=== PATIENT | female | born 1965 | race African-American/Black ===

== ENCOUNTER 2016-09-07 16:30 | Inpatient (IN) | payer MEDICAID, OTHER ==
[~2016-09-07] VITALS: Ht 157.5 cm; Wt 85.0 kg
[~2016-09-07 16:30] MED LIST: ALBU6.7H IH; DULO60CA44 PO; GABA-531 PO; OXYB5 PO; QUET200T PO; TRAZ150 PO
[2016-09-07 17:06] LABS: GLUCOSE COMMENT 1 Doctor Notified; GLUCOSE,POINT OF CARE 108 MG/DL (70-110)
[2016-09-07 17:08] LABS: BASOPHILS % (AUTO) 0.9 % (0.0-2.0); EOSINOPHILS % (AUTO) 2.7 % (1.0-6.0); HEMATOCRIT 36.7 % (36-46); HEMOGLOBIN 11.8 g/dL (12.0-16.0); LYMPHOCYTES # (AUTO) 2.5 K/uL (1.0-4.8); LYMPHOCYTES % (AUTO) 39.1 % (22.0-44.0); MEAN CORPUSCULAR HGB CONC 32.1 G/dL (31.0-37.0); MEAN CORPUSCULAR VOLUME 81 fL (80-100); MONOCYTES # (AUTO) 0.5 K/uL (0.1-1.0); MONOCYTES % (AUTO) 7.7 % (2.0-9.0); NEUTROPHILS # (AUTO) 3.1 K/uL (1.8-7.7); NEUTROPHILS % (AUTO) 49.6 % (40.0-70.0); PLATELET COUNT (AUTO) 334 K/uL (150-450); RED BLOOD CELL COUNT(AUTO) 4.52 MIL/uL (4.00-5.20); RED CELL DISTRIBUTION WIDTH 14.1 % (11.5-14.5); WHITE BLOOD COUNT (AUTO) 6.3 K/uL (4.5-11.0)
[2016-09-07 17:22] LABS: ANION GAP 7 mmol/L (8-16); CARBON DIOXIDE 28 mmol/L (22-29); CHLORIDE 105 mmol/L (98-107); CREATININE 0.64 mg/dL (0.60-1.30); GLOMERULAR FILTR. RATE CALC > 60 mL/min (>60); POTASSIUM 3.1 mmol/L (3.5-5.1); SODIUM SERUM 140 mmol/L (136-145); UREA NITROGEN, BLOOD 11 mg/dL (7-18)
[2016-09-07 17:28] LABS: ALANINE AMINOTRANSFERASE 39 U/L (12-78); ALBUMIN 3.4 g/dL (3.4-5.0); ASPARTATE AMINOTRANSFERASE 26 U/L (15-37); BILIRUBIN,TOTAL 0.4 mg/dL (0.1-1.0); TOTAL PROTEIN, SERUM 7.1 g/dL (6.4-8.2)
[2016-09-07] MEDS ORDERED: DULO60CA44 PO (17:28)
[2016-09-07] MEDS ORDERED: HYDR25TA PO (17:28)
[2016-09-07] MEDS ORDERED: ALBU8.5H IH (17:28)
[2016-09-07] MEDS ORDERED: MIRT30 PO (17:28)
[2016-09-07] MEDS ORDERED: LOSA50TA37 PO (17:28)
[2016-09-07] MEDS ORDERED: AMLO-512 PO (17:28)
[2016-09-07] MEDS ORDERED: METF500T4 PO (17:28)
[2016-09-07] MEDS ORDERED: GABA-531 PO (17:28)
[2016-09-07] MEDS ORDERED: OMEP20 PO (17:28)
[2016-09-07] MEDS ORDERED: QUET25TA PO (17:28)
[2016-09-07] MEDS ORDERED: SIMV-261 PO (17:28)
[2016-09-07] MEDS ORDERED: BECL8.7A5 BC (17:28)
[2016-09-07] MEDS ORDERED: ACETAMINOPHEN 500 MG TABLET PO ONE (18:15)
[2016-09-07] MEDS ORDERED: POTASSIUM CHLORIDE 10% 40 MEQ/30 ML LIQUID UDCUP PO ONE (18:15)
[2016-09-07] MEDS ORDERED: IBUPROFEN 600 MG TABLET PO ONE (18:15)
[2016-09-07 20:54] VITALS: BP 150/98
[2016-09-07] MEDS ORDERED: HALOPERIDOL 5 MG TABLET PO PRN (21:30)
[2016-09-07] MEDS ORDERED: INFLUENZA VIRUS VACCINE QVS 2016-17 (3YR+)/PF 60 MCG/0.5 ML SYRINGE IM ONE (22:00)
[2016-09-08] MEDS ORDERED: CloNIDine HCL 0.1 MG TABLET PO PRN (07:30)
[2016-09-08] MEDS ORDERED: ACETAMINOPHEN 325 MG TABLET PO PRN (07:30)
[2016-09-08] MEDS ORDERED: BACITRACIN 28.4 GM OINTMENT TP PRN (07:30)
[2016-09-08] MEDS ORDERED: MAG HYDROX/AL HYDROX/SIMETH ES 30 ML SUSPENSION UDCUP PO PRN (07:30)
[2016-09-08] MEDS ORDERED: MAGNESIUM HYDROXIDE SUSPENSION 30 ML UDCUP PO PRN (07:30)
[2016-09-08] MEDS ORDERED: LOPERAMIDE HCL 2 MG CAPSULE PO PRN (07:30)
[2016-09-08] MEDS ORDERED: ALBUTEROL SULFATE HFA 90 MCG/PUFF 8 GM INHALER IH PRN (07:30)
[2016-09-08] MEDS ORDERED: PETROLATUM,WHITE 71 GM JELLY TP PRN (07:30)
[2016-09-08] MEDS ORDERED: ONDANSETRON HCL 4 MG TABLET PO PRN (07:30)
[2016-09-08] MEDS ORDERED: GuaiFENesin/D-METHORPHAN/PHENYLEPH 5 ML LIQUID ORAL.SYG PO PRN (07:30)
[2016-09-08] MEDS ORDERED: DEXTROSE 50%-WATER 25 GM/50 ML SYRINGE IVP PRN (07:30)
[2016-09-08] MEDS ORDERED: BENZOCAINE/MENTHOL LOZENGE [8 LOZENGES/PACKET] MM PRN (08:00)
[2016-09-08] MEDS: HYDROCHLOROTHIAZIDE 25 MG TABLET PO SCH (09:00)
[2016-09-08] MEDS: AmLODIPine BESYLATE 10 MG TABLET PO SCH (09:00)
[2016-09-08] MEDS: LOSARTAN POTASSIUM 50 MG TABLET PO SCH (09:16)
[2016-09-08] MEDS: BECLOMETHASONE DIPR 80 MCG/PUFF 8.7 GM INHALER IH SCH ×2 (09:16→21:20)
[2016-09-08] MEDS: MetFORMIN HCL 500 MG TABLET PO SCH ×2 (09:16→17:59)
[2016-09-08] MEDS: OMEPRAZOLE 20 MG CAPSULE PO SCH (09:17)
[2016-09-08 11:56] LABS: GLUCOSE,POINT OF CARE 170 MG/DL (70-110)
[2016-09-08] MEDS: INSULIN ASPART 100 UNITS/ML SQ PRN (12:09)
[2016-09-08 12:30] VITALS: BP 102/69
[2016-09-08 17:31] LABS: GLUCOSE,POINT OF CARE 100 MG/DL (70-110)
[2016-09-08 18:43] VITALS: BP 122/69
[2016-09-08] MEDS: MIRTAZAPINE 30 MG TABLET PO SCH (21:21)
[2016-09-08] MEDS: SIMVASTATIN 20 MG TABLET PO SCH (21:21)
[2016-09-08] MEDS: QUEtiapine FUMARATE 100 MG TABLET PO SCH (21:21)
[2016-09-08 23:33] LABS: GLUCOSE,POINT OF CARE 100 MG/DL (70-110)
[2016-09-09 06:29] LABS: CHOL/HDL RATIO 4.9 (3.9-5.7); POTASSIUM 3.9 mmol/L (3.5-5.1); THYROID STIMULATING HORMONE 0.74 uIU/mL (0.36-3.74)
[2016-09-09 07:33] LABS: HEMOGLOBIN A1C 7.1 % (4.5-6.2)
[2016-09-09 07:36] LABS: GLUCOSE,POINT OF CARE 91 MG/DL (70-110)
[2016-09-09] MEDS: MetFORMIN HCL 500 MG TABLET PO SCH ×2 (08:00→17:20)
[2016-09-09 11:30] VITALS: BP 126/68
[2016-09-09] MEDS: LOSARTAN POTASSIUM 50 MG TABLET PO SCH (11:38)
[2016-09-09] MEDS: HYDROCHLOROTHIAZIDE 25 MG TABLET PO SCH (11:38)
[2016-09-09] MEDS: BECLOMETHASONE DIPR 80 MCG/PUFF 8.7 GM INHALER IH SCH (11:38)
[2016-09-09] MEDS: AmLODIPine BESYLATE 10 MG TABLET PO SCH (11:38)
[2016-09-09] MEDS: OMEPRAZOLE 20 MG CAPSULE PO SCH (11:38)
[2016-09-09] MEDS: DULoxetine HCL 60 MG CAPSULE PO SCH (11:39)
[2016-09-09 17:21] LABS: GLUCOSE,POINT OF CARE 120 MG/DL (70-110)
[2016-09-09] MEDS: QUEtiapine FUMARATE 100 MG TABLET PO SCH (21:06)
[2016-09-09] MEDS: MIRTAZAPINE 30 MG TABLET PO SCH (21:06)
[2016-09-09] MEDS: SIMVASTATIN 20 MG TABLET PO SCH (21:06)
[2016-09-09 21:11] LABS: GLUCOSE,POINT OF CARE 123 MG/DL (70-110)
[2016-09-10 05:21] LABS: GLUCOSE,POINT OF CARE 91 MG/DL (70-110)
[2016-09-10] MEDS: MetFORMIN HCL 500 MG TABLET PO SCH ×2 (06:39→17:32)
[2016-09-10 08:30] VITALS: BP 127/59
[2016-09-10] MEDS: OMEPRAZOLE 20 MG CAPSULE PO SCH (10:07)
[2016-09-10] MEDS: AmLODIPine BESYLATE 10 MG TABLET PO SCH (10:08)
[2016-09-10] MEDS: HYDROCHLOROTHIAZIDE 25 MG TABLET PO SCH (10:08)
[2016-09-10] MEDS: DULoxetine HCL 60 MG CAPSULE PO SCH (10:08)
[2016-09-10] MEDS: LOSARTAN POTASSIUM 50 MG TABLET PO SCH (10:09)
[2016-09-10] MEDS: BECLOMETHASONE DIPR 80 MCG/PUFF 8.7 GM INHALER IH SCH ×2 (10:10→17:32)
[2016-09-10 11:47] LABS: GLUCOSE,POINT OF CARE 99 MG/DL (70-110)
[2016-09-10] MEDS: INSULIN ASPART 100 UNITS/ML SQ PRN (12:13)
[2016-09-10 16:00] VITALS: BP 122/56
[2016-09-10 16:57] LABS: GLUCOSE,POINT OF CARE 107 MG/DL (70-110)
[2016-09-10] MEDS: MIRTAZAPINE 30 MG TABLET PO SCH (21:06)
[2016-09-10] MEDS: QUEtiapine FUMARATE 100 MG TABLET PO SCH (21:06)
[2016-09-10] MEDS: SIMVASTATIN 20 MG TABLET PO SCH (21:06)
[2016-09-10 21:16] LABS: GLUCOSE,POINT OF CARE 117 MG/DL (70-110)
[2016-09-11 05:46] LABS: GLUCOSE,POINT OF CARE 95 MG/DL (70-110)
[2016-09-11] MEDS: MetFORMIN HCL 500 MG TABLET PO SCH ×2 (06:39→16:26)
[2016-09-11 08:00] VITALS: BP 118/77
[2016-09-11] MEDS: DULoxetine HCL 60 MG CAPSULE PO SCH (10:27)
[2016-09-11] MEDS: OMEPRAZOLE 20 MG CAPSULE PO SCH (10:27)
[2016-09-11] MEDS: AmLODIPine BESYLATE 10 MG TABLET PO SCH (10:27)
[2016-09-11] MEDS: BECLOMETHASONE DIPR 80 MCG/PUFF 8.7 GM INHALER IH SCH ×2 (10:27→16:26)
[2016-09-11] MEDS: HYDROCHLOROTHIAZIDE 25 MG TABLET PO SCH (10:27)
[2016-09-11] MEDS: LOSARTAN POTASSIUM 50 MG TABLET PO SCH (10:28)
[2016-09-11] MEDS: INSULIN ASPART 100 UNITS/ML SQ PRN (12:02)
[2016-09-11 12:06] LABS: GLUCOSE,POINT OF CARE 130 MG/DL (70-110)
[2016-09-11] MEDS: TraMADol HCL 50 MG TABLET PO PRN (12:43)
[2016-09-11 13:09] LABS: APPEARANCE,URINE CLOUDY (CLEAR); GLUCOSE, URINE (UA) NEGATIVE (NEGATIVE); KETONES,URINE NEGATIVE (NEGATIVE); LEUKOCYTE ESTERASE ,URINE NEGATIVE (NEGATIVE); OCCULT BLOOD,URINE NEGATIVE (NEGATIVE); PROTEIN,URINE NEGATIVE (NEGATIVE)
[2016-09-11 13:17] LABS: RBC,URINE None Seen /HPF (0-2); SQUAMOUS EPITHELIAL CELL,UR Few /LPF (None Seen); WBC,URINE 0-2 /HPF (0-5)
[2016-09-11 13:47] VITALS: BP 102/58
[2016-09-11] MEDS: CIPROFLOXACIN HCL 250 MG TABLET PO SCH (16:26)
[2016-09-11 16:31] LABS: GLUCOSE,POINT OF CARE 116 MG/DL (70-110)
[2016-09-11 18:18] VITALS: BP 111/64
[2016-09-11] MEDS: QUEtiapine FUMARATE 100 MG TABLET PO SCH (21:01)
[2016-09-11] MEDS: MIRTAZAPINE 30 MG TABLET PO SCH (21:01)
[2016-09-11] MEDS: SIMVASTATIN 20 MG TABLET PO SCH (21:01)
[2016-09-11 21:11] LABS: GLUCOSE,POINT OF CARE 114 MG/DL (70-110)
[2016-09-12 05:41] VITALS: BP 100/61
[2016-09-12 06:11] LABS: GLUCOSE,POINT OF CARE 98 MG/DL (70-110)
[2016-09-12] MEDS: MetFORMIN HCL 500 MG TABLET PO SCH ×2 (07:02→16:18)
[2016-09-12] MEDS: INSULIN ASPART 100 UNITS/ML SQ PRN (07:14)
[2016-09-12 08:00] VITALS: BP 129/74
[2016-09-12] MEDS: AmLODIPine BESYLATE 10 MG TABLET PO SCH (09:22)
[2016-09-12] MEDS: DULoxetine HCL 60 MG CAPSULE PO SCH (09:22)
[2016-09-12] MEDS: OMEPRAZOLE 20 MG CAPSULE PO SCH (09:22)
[2016-09-12] MEDS: CIPROFLOXACIN HCL 250 MG TABLET PO SCH ×2 (09:22→16:18)
[2016-09-12] MEDS: HYDROCHLOROTHIAZIDE 25 MG TABLET PO SCH (09:22)
[2016-09-12] MEDS: LOSARTAN POTASSIUM 50 MG TABLET PO SCH (09:23)
[2016-09-12] MEDS: BECLOMETHASONE DIPR 80 MCG/PUFF 8.7 GM INHALER IH SCH ×2 (09:23→16:18)
[2016-09-12] MEDS: TraMADol HCL 50 MG TABLET PO PRN (11:02)
[2016-09-12 11:16] LABS: GLUCOSE,POINT OF CARE 80 MG/DL (70-110)
[2016-09-12 16:26] LABS: GLUCOSE COMMENT 1 Received Meds; GLUCOSE,POINT OF CARE 101 MG/DL (70-110)
[2016-09-12 17:10] VITALS: BP 117/59
[2016-09-12] MEDS: IBUPROFEN 600 MG TABLET PO PRN (18:40)
[2016-09-12 18:42] VITALS: BP 122/77
[2016-09-12] MEDS: QUEtiapine FUMARATE 100 MG TABLET PO SCH (20:03)
[2016-09-12] MEDS: SIMVASTATIN 20 MG TABLET PO SCH (20:03)
[2016-09-12] MEDS: MIRTAZAPINE 30 MG TABLET PO SCH (20:03)
[2016-09-12 20:11] LABS: GLUCOSE,POINT OF CARE 103 MG/DL (70-110)
[2016-09-13 05:56] LABS: GLUCOSE,POINT OF CARE 124 MG/DL (70-110)
[2016-09-13] MEDS: MetFORMIN HCL 500 MG TABLET PO SCH ×2 (06:59→16:36)
[2016-09-13] MEDS: BECLOMETHASONE DIPR 80 MCG/PUFF 8.7 GM INHALER IH SCH ×2 (10:04→16:24)
[2016-09-13] MEDS: CIPROFLOXACIN HCL 250 MG TABLET PO SCH ×2 (10:04→16:24)
[2016-09-13] MEDS: LOSARTAN POTASSIUM 50 MG TABLET PO SCH (10:05)
[2016-09-13] MEDS: OMEPRAZOLE 20 MG CAPSULE PO SCH (10:05)
[2016-09-13] MEDS: DULoxetine HCL 60 MG CAPSULE PO SCH (10:05)
[2016-09-13] MEDS: HYDROCHLOROTHIAZIDE 25 MG TABLET PO SCH (10:05)
[2016-09-13] MEDS: AmLODIPine BESYLATE 10 MG TABLET PO SCH (10:05)
[2016-09-13] MEDS: TraMADol HCL 50 MG TABLET PO PRN (11:34)
[2016-09-13 11:36] LABS: GLUCOSE,POINT OF CARE 90 MG/DL (70-110)
[2016-09-13 16:50] VITALS: BP 110/76
[2016-09-13] MEDS: QUEtiapine FUMARATE 100 MG TABLET PO SCH (20:31)
[2016-09-13] MEDS: MIRTAZAPINE 30 MG TABLET PO SCH (20:31)
[2016-09-13] MEDS: SIMVASTATIN 20 MG TABLET PO SCH (20:31)
[2016-09-13] MEDS: INSULIN ASPART 100 UNITS/ML SQ PRN (20:36)
[2016-09-13 20:56] LABS: GLUCOSE,POINT OF CARE 97 MG/DL (70-110)
[2016-09-14] MEDS: MetFORMIN HCL 500 MG TABLET PO SCH ×2 (07:04→17:22)
[2016-09-14 08:00] VITALS: BP 133/79
[2016-09-14] MEDS: OMEPRAZOLE 20 MG CAPSULE PO SCH (08:20)
[2016-09-14] MEDS: DULoxetine HCL 60 MG CAPSULE PO SCH (08:21)
[2016-09-14] MEDS: TraMADol HCL 50 MG TABLET PO PRN ×2 (08:21→17:24)
[2016-09-14] MEDS: CIPROFLOXACIN HCL 250 MG TABLET PO SCH ×2 (08:22→17:22)
[2016-09-14] MEDS: LOSARTAN POTASSIUM 50 MG TABLET PO SCH (08:22)
[2016-09-14] MEDS: BECLOMETHASONE DIPR 80 MCG/PUFF 8.7 GM INHALER IH SCH ×2 (08:22→17:22)
[2016-09-14] MEDS: HYDROCHLOROTHIAZIDE 25 MG TABLET PO SCH (08:22)
[2016-09-14] MEDS: AmLODIPine BESYLATE 10 MG TABLET PO SCH (08:22)
[2016-09-14 09:21] VITALS: BP 115/62
[2016-09-14 12:07] LABS: GLUCOSE,POINT OF CARE 107 MG/DL (70-110)
[2016-09-14] MEDS: INSULIN ASPART 100 UNITS/ML SQ PRN (12:57)
[2016-09-14] MEDS: IBUPROFEN 600 MG TABLET PO PRN (13:30)
[2016-09-14 14:00] VITALS: BP 139/62
[2016-09-14 16:43] VITALS: BP 112/74
[2016-09-14 18:24] VITALS: BP 123/70
[2016-09-14] MEDS: ZOLPIDEM TARTRATE 10 MG TABLET PO PRN (20:14)
[2016-09-14] MEDS: MIRTAZAPINE 30 MG TABLET PO SCH (20:14)
[2016-09-14] MEDS: SIMVASTATIN 20 MG TABLET PO SCH (20:14)
[2016-09-14] MEDS: QUEtiapine FUMARATE 100 MG TABLET PO SCH (20:14)
[2016-09-15 05:36] LABS: GLUCOSE,POINT OF CARE 142 MG/DL (70-110)
[2016-09-15] MEDS: MetFORMIN HCL 500 MG TABLET PO SCH ×2 (06:54→17:26)
[2016-09-15] MEDS: INSULIN ASPART 100 UNITS/ML SQ PRN ×2 (06:58→11:36)
[2016-09-15] MEDS: OMEPRAZOLE 20 MG CAPSULE PO SCH (08:10)
[2016-09-15] MEDS: HYDROCHLOROTHIAZIDE 25 MG TABLET PO SCH (08:10)
[2016-09-15] MEDS: DULoxetine HCL 60 MG CAPSULE PO SCH (08:10)
[2016-09-15] MEDS: AmLODIPine BESYLATE 10 MG TABLET PO SCH (08:11)
[2016-09-15] MEDS: LORazepam 2 MG TABLET PO PRN ×2 (08:11→19:15)
[2016-09-15] MEDS: TraMADol HCL 50 MG TABLET PO PRN ×2 (08:15→17:27)
[2016-09-15 09:15] VITALS: BP 122/68
[2016-09-15 11:22] VITALS: BP 138/76
[2016-09-15 11:36] LABS: GLUCOSE,POINT OF CARE 129 MG/DL (70-110)
[2016-09-15] MEDS: BECLOMETHASONE DIPR 80 MCG/PUFF 8.7 GM INHALER IH SCH ×2 (12:22→17:26)
[2016-09-15] MEDS: LOSARTAN POTASSIUM 50 MG TABLET PO SCH (12:23)
[2016-09-15 17:02] VITALS: BP 129/78
[2016-09-15] MEDS: QUEtiapine FUMARATE 100 MG TABLET PO SCH (20:31)
[2016-09-15] MEDS: SIMVASTATIN 20 MG TABLET PO SCH (20:31)
[2016-09-15] MEDS: MIRTAZAPINE 30 MG TABLET PO SCH (20:31)
[2016-09-15] MEDS: IBUPROFEN 600 MG TABLET PO PRN (20:31)
[2016-09-15 20:33] VITALS: BP 130/73
[2016-09-16 06:06] LABS: GLUCOSE,POINT OF CARE 79 MG/DL (70-110)
[2016-09-16] MEDS: MetFORMIN HCL 500 MG TABLET PO SCH ×2 (07:07→17:14)
[2016-09-16] MEDS: INSULIN ASPART 100 UNITS/ML SQ PRN (07:11)
[2016-09-16] MEDS: AmLODIPine BESYLATE 10 MG TABLET PO SCH (08:52)
[2016-09-16] MEDS: LOSARTAN POTASSIUM 50 MG TABLET PO SCH (08:52)
[2016-09-16] MEDS: DULoxetine HCL 60 MG CAPSULE PO SCH (08:52)
[2016-09-16] MEDS: OMEPRAZOLE 20 MG CAPSULE PO SCH (08:52)
[2016-09-16] MEDS: HYDROCHLOROTHIAZIDE 25 MG TABLET PO SCH (08:53)
[2016-09-16 08:55] VITALS: BP 127/71
[2016-09-16] MEDS: TraMADol HCL 50 MG TABLET PO PRN (08:55)
[2016-09-16] MEDS: BECLOMETHASONE DIPR 80 MCG/PUFF 8.7 GM INHALER IH SCH ×2 (08:56→17:03)
[2016-09-16] MEDS ORDERED: HYPROMELLOSE 0.5% 15 ML OPHTHALMIC SOLUTION OU PRN (10:30)
[2016-09-16] MEDS: DOCOSANOL 10% 2 GM CREAM TP SCH ×5 (10:30→22:57)
[2016-09-16] MEDS: IBUPROFEN 600 MG TABLET PO PRN (13:25)
[2016-09-16 17:06] VITALS: BP 115/65
[2016-09-16] MEDS: SIMVASTATIN 20 MG TABLET PO SCH (20:47)
[2016-09-16] MEDS: QUEtiapine FUMARATE 100 MG TABLET PO SCH (20:47)
[2016-09-16] MEDS: MIRTAZAPINE 30 MG TABLET PO SCH (20:48)
[2016-09-16] MEDS: ZOLPIDEM TARTRATE 10 MG TABLET PO PRN (21:33)
[2016-09-17] MEDS: DOCOSANOL 10% 2 GM CREAM TP SCH ×5 (05:59→21:01)
[2016-09-17 06:01] LABS: GLUCOSE,POINT OF CARE 139 MG/DL (70-110)
[2016-09-17] MEDS: MetFORMIN HCL 500 MG TABLET PO SCH ×2 (07:01→16:49)
[2016-09-17] MEDS: INSULIN ASPART 100 UNITS/ML SQ PRN (07:02)
[2016-09-17] MEDS: DULoxetine HCL 60 MG CAPSULE PO SCH (09:52)
[2016-09-17] MEDS: OMEPRAZOLE 20 MG CAPSULE PO SCH (09:53)
[2016-09-17 10:00] VITALS: BP 124/58
[2016-09-17] MEDS: LOSARTAN POTASSIUM 50 MG TABLET PO SCH (10:04)
[2016-09-17] MEDS: BECLOMETHASONE DIPR 80 MCG/PUFF 8.7 GM INHALER IH SCH ×2 (10:04→16:13)
[2016-09-17] MEDS: HYDROCHLOROTHIAZIDE 25 MG TABLET PO SCH (10:05)
[2016-09-17] MEDS: AmLODIPine BESYLATE 10 MG TABLET PO SCH (10:05)
[2016-09-17] MEDS: IBUPROFEN 600 MG TABLET PO PRN (11:13)
[2016-09-17] MEDS ORDERED: MIRT30 PO (14:26)
[2016-09-17] MEDS ORDERED: SIMV-260 PO (14:26)
[2016-09-17] MEDS ORDERED: HYDR25TA PO (14:26)
[2016-09-17] MEDS ORDERED: DULO60CA44 PO (14:26)
[2016-09-17] MEDS ORDERED: QUET100T PO (14:26)
[2016-09-17 16:08] VITALS: BP 113/74
[2016-09-17] MEDS: TraMADol HCL 50 MG TABLET PO PRN (16:13)
[2016-09-17] MEDS: QUEtiapine FUMARATE 100 MG TABLET PO SCH (20:15)
[2016-09-17] MEDS: MIRTAZAPINE 30 MG TABLET PO SCH (20:15)
[2016-09-17] MEDS: SIMVASTATIN 20 MG TABLET PO SCH (20:15)
[2016-09-17] MEDS: LORazepam 2 MG TABLET PO PRN (20:18)
[2016-09-18] MEDS: DOCOSANOL 10% 2 GM CREAM TP SCH ×3 (06:07→14:10)
[2016-09-18 06:11] LABS: GLUCOSE,POINT OF CARE 90 MG/DL (70-110)
[2016-09-18] MEDS: MetFORMIN HCL 500 MG TABLET PO SCH (07:00)
[2016-09-18] MEDS: INSULIN ASPART 100 UNITS/ML SQ PRN (07:03)
[2016-09-18 08:00] VITALS: BP 111/81
[2016-09-18] MEDS: LOSARTAN POTASSIUM 50 MG TABLET PO SCH (09:00)
[2016-09-18] MEDS: AmLODIPine BESYLATE 10 MG TABLET PO SCH (09:00)
[2016-09-18] MEDS: HYDROCHLOROTHIAZIDE 25 MG TABLET PO SCH (09:02)
[2016-09-18] MEDS: DULoxetine HCL 60 MG CAPSULE PO SCH (09:02)
[2016-09-18] MEDS: OMEPRAZOLE 20 MG CAPSULE PO SCH (09:02)
[2016-09-18 09:06] VITALS: BP 111/81
[2016-09-18] MEDS: TraMADol HCL 50 MG TABLET PO PRN (09:06)
[2016-09-18] MEDS: BECLOMETHASONE DIPR 80 MCG/PUFF 8.7 GM INHALER IH SCH (09:07)
[2016-09-18] MEDS ORDERED: DOCO2CRE4 TP (11:02)
[2016-09-18] MEDS ORDERED: BECL8.7A5 IH (11:02)
== END 2016-09-18 15:30 | disposition home or self-care (01) | DRG 750 ==
LOC: EMS 16:31 → AHU 20:37 → 3EI 09-09 17:22
DX: F25.1 Schizoaffective disorder, depressive type (principal); E11.65 Type 2 diabetes mellitus with hyperglycemia; R45.851 Suicidal ideations; I10 Essential (primary) hypertension; J45.909 Unspecified asthma, uncomplicated; R07.9 Chest pain, unspecified; E78.00 Pure hypercholesterolemia, unspecified; E87.6 Hypokalemia; F15.10 Other stimulant abuse, uncomplicated; F43.10 Post-traumatic stress disorder, unspecified; G89.29 Other chronic pain; M54.9 Dorsalgia, unspecified; I34.1 Nonrheumatic mitral (valve) prolapse; J44.9 Chronic obstructive pulmonary disease, unspecified; K21.9 Gastro-esophageal reflux disease without esophagitis; M87.9 Osteonecrosis, unspecified; Z96.643 Presence of artificial hip joint, bilateral; G43.909 Migraine, unspecified, not intractable, without status migrainosus; F31.9 Bipolar disorder, unspecified; F17.210 Nicotine dependence, cigarettes, uncomplicated; M25.572 Pain in left ankle and joints of left foot; Z72.89 Other problems related to lifestyle; Z71.6 Tobacco abuse counseling; Z71.51 Drug abuse counseling and surveillance of drug abuser; Z79.899 Other long term (current) drug therapy; Z88.1 Allergy status to other antibiotic agents; Z88.0 Allergy status to penicillin; Z98.890 Other specified postprocedural states; Z91.5 Personal history of self-harm; Z59.0 Homelessness; Z71.41 Alcohol abuse counseling and surveillance of alcoholic; Z28.21 Immunization not carried out because of patient refusal
CPT/HCPCS: 82306; 82962; 83036; 84132; 84443; 87086; 99285; 99406; G0480; J3535